=== PATIENT | male | born 2000 | race Caucasian/White ===

== ENCOUNTER → 2020-03-29 | Outpatient (CLI) | payer OTHER ==
[~2020-03-29] MED LIST: TAMIFLU75 MG PO
[2020-03-29 10:05] LABS: HEMOGLOBIN 14.6 gm/dl (14.0-17.5); RED BLOOD COUNT 4.88 M/UL (4.20-5.50)
[2020-03-29 10:28] LABS: BUN/CREATININE RATIO 24 (0-10)
== END ==
LOC: LAB 09:24
PROVIDERS: Family Medicine
DX: M54.5 Low back pain (principal); E66.9 Obesity, unspecified
CPT/HCPCS: 72110; 80053; 80061; 84443; 85027

== ENCOUNTER 2021-10-21 19:03 | Emergency (ER) | payer OTHER ==
[~2021-10-21 19:03] MED LIST changes: +LISINOPRIL10 MG PO; +TOPAMAX25 MG PO; +TYLENOL 8 HOUR650 MG PO
[2021-10-21 19:48] LABS: HEMOGLOBIN 15.2 gm/dl (14.0-17.5); RED BLOOD COUNT 4.98 M/UL (4.20-5.50)
[2021-10-21 20:10] LABS: BUN/CREATININE RATIO 18 (0-10)
[2021-10-21] MEDS ORDERED: CEPHALEXIN500 M1 PO (21:35)
== END 2021-10-21 21:50 | disposition home or self-care (01) ==
LOC: ER1 19:03
PROVIDERS: Physician Assistant
DX: L05.91 Pilonidal cyst without abscess (principal)
CPT/HCPCS: 80053; 85025; 85652; 86140; 87070; 87205; 99283